=== PATIENT | male | born 1970 | race Two or more races ===

== ENCOUNTER 2024-08-08 08:00 | Day surgery (SDC) | payer OTHER, SELFPAY ==
--- NOTE | 2024-08-07 12:21 | EKG_ITS ---
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
[2024-08-07 12:28] VITALS: BMI 26.5
[2024-08-07 13:59] LABS: Alanine Aminotransferase 22 U/L (10-49); Albumin/Globulin Ratio 1.9 (1.2-2.2); Alkaline Phosphatase 73 U/L (46-116); Anion Gap 10 (7-16); Aspartate Amino Transferase 20 U/L (0-34); BUN/Creatinine Ratio 18 Ratio (12-20); Bilirubin,Total 0.5 mg/dL (0.3-1.2); Blood Urea Nitrogen 14 mg/dL (9-23); Calcium 10.2 mg/dL (8.3-10.6); Calcium (Corrected) 10.2 mg/dL (8.5-10.1); Carbon Dioxide 28.4 mMol/L (20.0-31.0); Chloride 102 mMol/L (98-107); Creatinine (Component) 0.8 mg/dL (0.6-1.3); Estimated Creatinine Clearance 107.7 mL/min (>60); Globulin 2.6 gm/dL (2.3-3.5); Glucose 98 mg/dL (74-106); Osmolality,Calculated 279 (275-295); Potassium 4.2 mMol/L (3.4-5.1); Sodium 140 mMol/L (136-145); Total Protein 7.6 gm/dL (5.7-8.2); eGFR > 60 See Note
[2024-08-08] VITALS (15 sets, daily range): BP systolic 123–155; BP diastolic 82–98; PULSE 63–75; RESP 12–20; TEMP 36.2–36.8; O2SAT 97–100; BMI 27.1
[2024-08-08] MEDS: RINGERS LACTATED 1000 ML 1,000 ML 20 ML IV (08:49)
--- NOTE | 2024-08-08 09:41 | XR_ITS ---
Examination: Bilateral retrograde pyelograms with without KUB Fluoroscopy 9 spot fluoroscopic films of the abdomen Exam date and time: August 08, 2024 at 1149 hours INDICATIONS: Multiple left renal calculi on CT stone study April 12, 2024 TECHNIQUE AND FINDINGS: 9 spot fluoroscopic films of the abdomen obtained Fluoroscopy 1 minute 25 seconds radiation dose 14.59 milligray Contrast opacifies dilated renal collecting systems No ureteral stents are depicted IMPRESSION: Bilateral retrograde studies as above
--- NOTE | 2024-08-08 12:35 | ESOP_ITS ---
Date of Procedure 08/08/24 Pre Op Diagnosis BPH with urinary obstruction and LUTS on tamsulosin 0.4 mg p.o. daily #2 intermittent gross hematuria Post Op Diagnosis Same trabeculated bladder J hooking of the ureters and large median lobe and tiny stones left renal collecting system plus urethral stenosis Procedure Cystoscopic examination bilateral retrograde pyelogram bilateral flexible digital ureteroscopy under fluoroscopic examination urethral dilation Findings Obstructive prostate gland, median lobe enlargement, j hooking of the ureters, tiny stone left collecting system Procedure Description Indication for procedure this is a 54-year-old gentleman who is seen in urology office this patient has BPH with obstructive prostate gland. Patient is on tamsulosin 0.4 mg p.o. daily patient had intermittent gross hematuria he has no history of bleeding diathesis he is not taking any anticoagulants CAT scan was done there was no kidney ureter or bladder stone identified he had tiny stones left renal collecting system. Patient continued to have intermittent gross hematuria he was recommended above procedure procedure and complications were discussed with the patient in great detail informed consent is obtained Patient was brought to the operating room in a satisfactory condition after appropriate premedication was appropriately identified by the surgeon and operating room staff site scope and indications of the procedure were reconfirmed with the patient general anesthesia was given uneventfully parts were prepped and draped in the usual sterile fashion 2% lidocaine was instilled into the urethra 21 Beasley cystoscope was used to do the cystourethroscopy examination of urethra was unremarkable he did have urethral stricture urethral calibration and dilation with male urethral sounds up to 24 [place] was carried out at this time patient received perioperative antibiotics 20 mg of Lasix IV was given for diuresis as well as prevention of pyelocalyceal's infectious complications. Examination of rest of the urethra revealed no stricture prostatic urethra revealed a large prostate gland congested with median lobe enlargement inside of the bladder in all the quadrants quadrant was carried out he had coarse bladder trabeculation and multiple shallow diverticuli no tumor stone was identified identified left ureteral orifice there was a J hooking of the distal ureter I passed the open-ended Pollick catheter through the open- ended Pollick catheter I passed safety wire into the upper pole calyx under fluoroscopic examination next semirigid ureteroscope was used to do the passive dilation of the ureter. No stone tumor was identified. Next semirigid ureteroscope was removed I used flexible digital ureteroscope and screen all the upper pole calyces there were tiny stone in the upper pole which were washed out there was no tumor identified no stone was identified a similar procedure was repeated on the contralateral side which was needed with the left side no tumor stone was identified. Instrument was withdrawn gently #16 Calvillo catheter was inserted patient after having tolerated the procedure well was moved to recovery room in a satisfactory condition to be discharged home to be followed in urology office postoperative instructions are given to patient verbally as well as in writing Calvillo catheter will be removed once urine is clear thank you Anesthesia GETA Pathology / specimen None Estimated Blood Loss 2.0 Condition Stable Disposition PACU Surgeon Bernard Garcia MD Surgical Staff Operation Date: 08/08/24 10:00 Case Staff Anesthesiologist: Teja Christianson
--- NOTE | 2024-08-08 12:37 | SUR.PHASEI ---
1237 Patient arrived to recovery resting comfortably in [facility], drowsy and talking with staff, breathing unlabored, vital signs stable, denies pain, urinary catheter in place with leg secure; draining to gravity, pink urine present in catheter, lung sounds clear upon auscultation, bilateral radial pulses present when palpated, report received from Dada SAUCEDO and Dr. Christianson
--- NOTE | 2024-08-08 12:52 | SUR.PHASEI ---
1252 report given to Leyda Mays RN
--- NOTE | 2024-08-08 12:52 | SUR.PHASEI ---
pt awake, alert, able to follow commands, breathing unlabored, 16F forrest in place and patent draining pink urine, report from Leyda Chou RN
[2024-08-08] MEDS: fentaNYL CIT INJ 50 mCg/ML AMP 2ML IV (13:27)
--- NOTE | 2024-08-08 13:30 | SUR.PHASEII ---
6290 Report received from Leyda Mays RN
--- NOTE | 2024-08-08 13:30 | SUR.PHASEII ---
Report to Leyda Chou RN
--- NOTE | 2024-08-08 13:42 | SUR.PHASEII ---
[address] Garcia patient urine continues to be dark pink, MD would like patient to discharge with catheter and then go to his office tomorrow morning for MD to assess patient, also telephone order read back received from Finasteride 5mg oral daily for patient to start today, will call prescription into pharmacy per MD order
--- NOTE | 2024-08-08 14:10 | SUR.PHASEII ---
1410 Dr. Garcia at bedside talking with patient, MD gave verbal order read-back [place] oral x1, will place order in EMR and administer to patient per MD order
[2024-08-08] MEDS: HYDROcodone/APAP 10/325 TAB PO (14:19)
--- NOTE | 2024-08-08 15:15 | SUR.PHASEII ---
1515 Patient meets discharge criteria from recovery, awake and alert, breathing unlabored, vital signs stable, per patient his pain is tolerable given pain pill prior to discharge, urinary catheter in place; drained 400ml prior to discharge from recovery, patients educated on how to care for catheter and receptive, patient assisted with dressing into his clothing by his and this radio script writer, patient signed limited proficiency statement for his to household coordinator [place]ral[place] to him, discharge instructions given to patient and patients , signed discharge instructions. Patient given all his belongings prior to discharge, transported via wheelchair and left in a private vehicle.
== END 2024-08-08 15:15 | disposition home or self-care (01) ==
PROVIDERS: Anesthesiology; Referring Provider Urology; Visit Provider Urology
PROC: 0TJB8ZZ Inspection of Bladder, Via Natural or Artificial Opening Endoscopic (ICD-10-PCS; CPT 52000; principal; 2024-08-08 09:45)
DX: N32.89 Other specified disorders of bladder (principal); N13.8 Other obstructive and reflux uropathy; N40.1 Benign prostatic hyperplasia with lower urinary tract symptoms; R31.0 Gross hematuria; Z01.810 Encounter for preprocedural cardiovascular examination
CPT/HCPCS: 52281; 36415; 76000; 80053; 93005; A4217; A4649; C1769; C1894; J1100; J1580; J1940; J2371; J2405; J2704; J3010; J3371; J3490; J7120; A9270

== ENCOUNTER → 2024-09-14 | Outpatient (BNVA) | payer OTHER, SELFPAY | END | disposition home or self-care (01) | PROVIDERS: PCP Family Medicine; Referring Provider Family Medicine; Visit Provider Urology | DX: N40.1 Benign prostatic hyperplasia with lower urinary tract symptoms (principal); N13.8 Other obstructive and reflux uropathy; I10 Essential (primary) hypertension; Z87.442 Personal history of urinary calculi; E78.00 Pure hypercholesterolemia, unspecified | CPT/HCPCS: 81003; 99212; G0463 ==

== ENCOUNTER → 2025-05-17 | Outpatient (BNVA) | payer OTHER, SELFPAY | END | disposition home or self-care (01) | PROVIDERS: PCP Family Medicine; Referring Provider Family Medicine; Visit Provider Urology | DX: R97.20 Elevated prostate specific antigen [PSA] (principal); I10 Essential (primary) hypertension | CPT/HCPCS: 81003; 99212; G0463 ==

== ENCOUNTER → 2025-06-14 | Outpatient (BNVA) | payer BC, SELFPAY | END | disposition home or self-care (01) | PROVIDERS: PCP Family Medicine; Referring Provider Family Medicine; Visit Provider Urology | DX: R31.9 Hematuria, unspecified (principal); R97.20 Elevated prostate specific antigen [PSA]; I10 Essential (primary) hypertension | CPT/HCPCS: 99212; G0463 ==

== ENCOUNTER 2025-07-12 09:15 | Emergency (ER) | payer BC, SELFPAY ==
[2025-07-12 09:16] VITALS: BP 94/64; PULSE 63; RESP 17; TEMP 37.2; O2SAT 95
--- NOTE | 2025-07-12 09:30 | XR_ITS ---
Examination: Bilateral hands, 6 views. Technique: AP, Oblique, Lateral each hand total 6 views Date and time of exam: July 12, 2025, 1017 hours INDICATIONS: Patient fell off a ladder today with injury to both hands, bilateral hand pain Findings: Acute comminuted impacted intra-articular fracture distal right radial metaphysis, dorsal displacement of the distal radial fracture fragment on the lateral view Old fracture right fifth metacarpal Old fracture left ulnar styloid tip No acute left hand fracture IMPRESSION: Acute comminuted impacted intra-articular displaced fracture right radial metaphysis
--- NOTE | 2025-07-12 09:30 | EDNOTE_ITS ---
ED Fall Injury RME/HPI General Chief Complaint: Fall Stated Complaint: RIGHT HAND INJURY FELL OF LADDER BACK PAIN Time Seen by Provider: 07/12/25 09:27 Arrival date/time: 07/12/25 09:15 RME / HPI RME / HPI Narrative: 55 year old male with history of hypertension and prediabetes presents to the ED following a fall from a ladder approximately 12 feet in height earlier today. The patient reports he was cutting branches from a tree while standing on the second highest step of the ladder when a branch struck the ladder, causing him to lose his balance and fall, landing on his right side. Upon impact, he also scraped the right side of his face. The patient denies any loss of consciousness. In the ED, he reports pain in the right wrist and left thumb, but denies any pain in the hips, legs, chest, abdomen, back, or neck. Patient repo rts he was ambulatory after the fall with no prolonged down time. Related Data Home Medications ?Medication ?Instructions ?Recorded ?Confirmed atorvastatin 40 mg tablet 40 mg PO QDAY 01/12/2406/14 lisinopril 20 mg tablet 20 mg PO QDAY 01/12/2406/14 tamsulosin 0.4 mg capsule 0.4 mg PO QDAY 04/12/2405/26 Previous Rx's ?Medication ?Instructions ?Recorded acetaminophen 500 mg tablet 1,000 mg (2 x 500 mg) PO Q 6H PRN 07/12/25 (Tylenol Extra Strength) pain #30 tabs ketorolac 10 mg tablet 10 mg PO Q8H PRN pain 5 days #20 07/12/25 tabs Allergies Allergy/AdvReac Type Severity Reaction Status Date / Time Penicillins Allergy Unknown Verified 07/12/25 09:18 povidone Allergy Unknown Verified 07/12/25 09:18 Quinolones Allergy Unknown Verified 07/12/25 09:18 ciprofloxacin (From Cipro) Allergy Verified 07/12/25 09:18 Review of Systems Review of Systems Systems Reviewed: All systems reviewed, normal except as documented Past Medical History Past Medical History CARDIAC: Positive Cardiac Disorders, Hypercholesterolemia and Hypertension GENITOURINARY: Positive Genitourinary Disorders, Kidney Stones and Benign Prostatic Hyperplasia MUSCULOSKELETAL: Positive Musculoskeletal Disorders and Degenerative Disk Disease OTHER HISTORY: Positive Hospitalization (accident, kidney stones) and Chicken Pox Family History FAMILY HISTORY: Positive Family Surgery Social History SMOKING STATUS: Never smoker ED Exam Narrative Physical exam: Constitutional: Awake, alert, appears in pain, diaphoretic. HEENT: Normocephalic, atraumatic, extraocular movements intact. Neck: Supple, no ttp posterior neck. CV: Regular rate and rhythm, no murmurs/rubs/gallops Lungs: Clear to auscultation BL, no respiratory distress. Abd: Soft, NT, ND, no HSM noted to palpation Extremities: Deformity R wrist c/w fracture. Pain left thumb no deformity. Pain right scapular region w mild swelling. Perfusion and sensation intact. Neuro: AAOx3, CN 2-12 GIBL, no acute neuro deficit noted. Skin: superficial abrasion right temporal region. Course Quality Measures none Orders Category Date Time Status CT Screening NOW Care 07/12/25 09:31 Completed Insert IV NOW Care 07/12/25 09:32 Completed Obtain Written Consent For: .NOW Care 07/12/25 10:42 Completed Splint / Immobilizer STAT Care 07/12/25 10:[address] cervical spine wo con Stat Exams 07/12/25 09:[address] chest abdomen pelvis w Stat Exams 07/12/25 09:[address] head/brain wo con Stat Exams 07/12/25 09:30 Completed XR hand BI 2V Stat Exams 07/12/25 09:30 Completed XR wrist RT 2V Stat Exams 07/12/25 09:30 Completed XR wrist RT 2V Stat Exams 07/12/25 12:04 Completed CBC Stat Lab 07/12/25 09:37 Completed CMP [Comprehensive Metabolic Panel] Stat Lab 07/12/25 09:37 Completed PT [Prothrombin Time with INR] Stat Lab 07/12/25 09:37 Completed Type and Screen Stat Lab 07/12/25 09:37 Completed HYDROcodone*/APAP 5/325 [[place] 5/325] Med 07/12/25 12:47 Discontinued 1 tab PO Q6HR PRN Ketamine Inj Med 07/12/25 10:41 Discontinued 45 mg IVP X1 ONE Morphine* Inj Med 07/12/25 09:34 Discontinued 4 mg IVP NOW ONE Ondansetron Inj [Zofran Inj] Med 07/12/25 09:35 Discontinued 4 mg IVP X1 ONE Propofol Inj [Diprivan Inj] Med 07/12/25 10:41 Discontinued 45 mg IV X1 ONE Ringers Lactated 1000 ml [Lactated Ringers] 1,000 ml Med 07/12/25 09:41 Discontinued IV 999 mls/hr fentaNYL INJ [Sublimaze Inj] Med 07/12/25 10:41 Discontinued 50 mcg IVP X1 ONE Vital Signs Vital signs: Vital Signs Temperature 98.9 F 07/12/25 09:16 Pulse Rate 63 07/12/25 09:16 Respiratory Rate 17 07/12/25 09:16 Blood Pressure 94/64 07/12/25 09:16 Pulse Oximetry (%) 95 07/12/25 09:16 Oxygen Delivery Method Room Air 07/12/25 09:16 Pulse ox is 95% on room air which is adequate. PROCEDURES: Orthopedic Fracture Reduction Fracture #1: Time Out Performed: Yes (time out @ 11:52h. ) Side: right Fracture Reduction Location: radius Analgesia: procedural sedation Technique: traction/counter-traction Post Reduction X-rays Demonstrate: anatomical reduction Post-reduction neuro exam: intact Post-reduction vascular exam: intact Splint Applied: Yes Patient Tolerated Procedure: well Procedural Sedation Indication: fracture/dislocation reduction ASA: 1 Preparation: court recording monitor applied, pulse oximeter, capnometry used, supplemental O2 applied, suction/airway equipment at bedside and IV secured Fentanyl: IV Fentanyl dose (mcg): 50 Ketamine: IV Ketamine dose (mg): 45 IV Propofol dose (mg): 45 Patient Tolerated Procedure: well Complications: hypoxia (patients oxygen dropped to 86% and momentarily bagged and quickly improved to high 90s. ) Interventions: oxygen applied and assist by BVM Splint Fabrication: Clinician Made Type: Reverse Sugar Tong Reason for Splint: Optimal Positioning Circulation Distal to Splint: Yes Movement Distal to Splint: Yes Senation Distal to Splint: Yes Tolerance: Tolerates Well Fall MDM Narrative MDM Narrative:: Elsa Fish am scribing for and in the presence of Dr. Sadler. Patient data External records reviewed:: [facility] previous records Clinical information provided by:: patient Social determinants that could affect healthcare access:: none Patient has the following chronic illnesses:: HTN, prediabetic How is presenting disease/condition affected by chronic disease/condition?: uneffected by Evaluation data The following diagnostics were reviewed and interpreted by me:: lab results and radiology exam(s) Lab and/or radiology exams considered but not ordered:: None Interpretation Summary: Cervical spine CT report shows no acute cervical fracture. Chest/abdomen/pelvis CT w con report shows no hemopericardium, pneumothorax, pulmonary contusion or hemothorax. No abdominal parenchymal laceration. No free blood in the abdomen or pelvis Bilateral hand XR report shows acute comminuted impacted intra-articular displaced fracture right radial metaphysis Head CT report shows no acute hemorrhage mass effect or midline shift XR right wrist report shows Acute impacted intra-articular displaced fracture distal radial metaphysis Repeat XR right wrist post procedure shows anatomically positioning of the fracture. Medications / Prescriptions Medications or Prescriptions considered but not ordered:: None Medication administrations:: Medication Administration History Discontinued Medications Hydrocodone Bitart/Acetaminophen (Hydrocodone/Apap 5/325 Tablet) 1 tab PO Q6HR PRN PRN Reason: PAIN Stop: 07/17/25 12:46 Last Admin: 07/12/25 13:51 Dose: 1 tab Documented By: LORI Fentanyl Citrate (Fentanyl Cit Inj 50 Mcg/Ml Amp 2ml) 50 mcg IVP X1 ONE Stop: 07/12/25 10:42 Last Admin: 07/12/25 11:51 Dose: 50 mcg Documented By: LORI Lactated Ringer's (Lactated Ringers) 1,000 mls @ 999 mls/hr IV .Q1H1M ONE Stop: 07/12/25 10:41 Last Infusion: 07/12/25 13:49 Dose: Infused Documented By: Admin: 07/12/25 10:03 Dose: 999 mls/hr Documented By: LORI Ketamine HCl (Ketamine 50 Mg/Ml Vial 10 Ml) 45 mg IVP X1 ONE Stop: 07/12/25 10:42 Last Admin: 07/12/25 11:52 Dose: 45 mg Documented By: LORI Morphine Sulfate (Morphine Sulf Inj 4 Mg/Ml Vial) 4 mg IVP NOW ONE Stop: 07/12/25 09:35 Last Admin: 07/12/25 10:02 Dose: 4 mg Documented By: LORI Ondansetron HCl (Ondansetron Inj 2 Mg/Ml Inj 2 Ml) 4 mg IVP X1 ONE; Protocol Stop: 07/12/25 09:36 Last Admin: 07/12/25 10:02 Dose: 4 mg Documented By: LORI Propofol (Propofol Inj 10 Mg/Ml Vial 20 Ml) 45 mg IV X1 ONE Stop: 07/12/25 10:42 Last Admin: 07/12/25 11:59 Dose: 45 mg Documented By: LORI Comments: Pushed by See above Consultations Consultation(s) initiated? (list below): No Diagnosis Fall Differential Diagnosis: fracture of wrist and compression fracture Most likely diagnosis given after review of the tests above:: Fracture right wrist Admission Indicated Admission indicated?: not indicated Admission Request Was there a request for admission?: No Disposition Plan Disposition Plan: Discharge Discharge Attestation Discharge Attestation: The patient and all family members were given an opportunity to ask questions and understood the discharge instructions. Discharge instructions specifically effects, indications for sooner follow up or return to the emergency department, and the expected course of current diagnosis. Patient condition: Stable Discharge Plan Plan Patient Disposition: HOME (Self Care) Patient condition on transfer: Stable Prescriptions/Referrals Prescriptions/Med Rec: New ketorolac 10 mg tablet 10 mg PO Q8H PRN (Reason: pain) 5 Days Qty: 20 0RF Rx Instructions: maximum total duration of 5 days from all oral, intranasal, or parenteral formulations acetaminophen [Tylenol Extra Strength] 500 mg tablet 1,000 mg PO Q6H PRN (Reason: pain) Qty: 30 0RF No Action atorvastatin 40 mg tablet 40 mg PO QDAY lisinopril 20 mg tablet 20 mg PO QDAY tamsulosin 0.4 mg capsule 0.4 mg PO QDAY Referrals: Geronimo Rodríguez MD [Primary Care Provider, Family Practice] - In 1 week Problem List Clinical Impression: Fracture of wrist Patient/Caregiver Discharge Instructions Education Materials: Treating Wrist Fractures, Procedural Sedation, ED Fracture, Wrist, General Additional Instructions: Algunos principios generales de margaret que pueden ayudarte son los principios de ADELANTE: Agua: (beber suficiente agua fresca para mantenerse hidratado, priorizando el agua en lugar de refrescos, caf?, t?, jugos, etc.). [place] (descansar adecuadamente por la noche, acostarse unas horas antes de la medianoche y evitar las pantallas, la televisi?n y la m?brian jayda marcos antes de acostarse, as? gosia las comidas pesadas marcos antes de acostarse). Ejercicio: (ejercicio/caminatas diarias seg?n la tolerancia). Fide solar: (exponer la piel al que porsche 15-20 minutos aproximadamente, temprano por la ma?richard y al atardecer, para obtener los beneficios de la vitamina D). Aire (ejercicios de respiraci?n profunda temprano por la ma?richard al aire alex). Nutricion: (consumir ozzie dieta a base de plantas, evitar las jailene en general y los alimentos altamente procesados). Templanza (evitar el alcohol, las drogas il?citas, las bebidas con cafe?na, fumar, etc.). [place] (dedicar tiempo diariamente al estudio b?blico y la oraci?n: la contemplaci?n tiene beneficios para la margaret). Recursos adicionales que pueden ser ?tiles: [email or web address], consulte la secci?n de recursos y seminarios. Print Language: Israeli Stand Alone Forms: [employer] Award Info., Patient Portal Info Letter
--- NOTE | 2025-07-12 09:30 | XR_ITS ---
Examination: CT cervical spine without contrast 2-D sagittal reconstructions 2-D coronal reconstructions 3-D reconstructions. Exam date and time: July 12, 2025, 1010 hours INDICATIONS: Patient fell 15 feet off a ladder today with injury to the neck, neck pain CTDI:vol (mGy) 60.2 DLP: (mGycm) 334 Technique: Multiple 2 mm axial sections of the cervical spine have been obtained. The coronal and sagittal reconstructions have been obtained. 3-D reconstructions have been obtained. Low dose protocols were performed. One or more of the following dose reduction techniques were used; automated exposure control, adjustment of the mA and/or KV according to patient size, use of iterative reconstruction technique. Findings: Axial sections demonstrate intact base of the skull. C1 exhibit satisfactory relationship to the odontoid. No acute cervical vertebral body fracture seen. Alignment posterior spinous processes satisfactory. Impression: No acute cervical fracture.
--- NOTE | 2025-07-12 09:30 | XR_ITS ---
EXAMINATION: Right wrist 2 views TECHNIQUE: AP lateral right wrist 2 views Date and time: July 12, 2025, 0955 hours INDICATIONS: Patient fell off a ladder today with injury to the wrist, wrist pain. FINDINGS: Acute intra-articular comminuted impacted fracture distal radial metaphysis On the lateral view there is dorsal displacement of the distal radial fracture fragment 10 mm There is angulation of the distal articulating surface of the radius dorsally Ulnar styloid tip fracture Carpal bones intact IMPRESSION: Acute impacted intra-articular displaced fracture distal radial metaphysis
--- NOTE | 2025-07-12 09:30 | XR_ITS ---
Examination: CT brain head without contrast. 2-D sagittal coronal reconstructions Date and time of exam: July 12, 2025, 1010 hours INDICATIONS: Patient fell off a ladder 15 feet today with injury to the head, head pain CTDI: vol (mGy): 52.2 DLP: (mGycm): 1061 Technique: Multiple CT axial sections of the brain have been obtained, 5 mm slice thickness. Contrast has not been administered. 2-D sagittal, coronal reconstructions have been obtained Low dose protocols were performed. One or more of the following dose reduction techniques were used; automated exposure control, adjustment of the mA and/or KV according to patient size, use of iterative reconstruction technique. Findings: No significant ventricular enlargement. Intra-axial or extra-axial hemorrhage density is not seen. No mass effect or midline shift Basal cisterns are not remarkable. Fourth ventricle is midline. Cranial vault intact. Impression: Negative for acute hemorrhage, mass effect or midline shift
--- NOTE | 2025-07-12 09:30 | XR_ITS ---
Examination: CT chest with intravenous contrast CT abdomen with intravenous contrast CT pelvis with intravenous contrast 2-D coronal and sagittal reconstructions Time of exam: June, 1019 hours INDICATIONS: Patient fell 15 feet off a ladder with injury to the chest and abdomen, chest pain abdomen pain CTDI: vol (mGy) : 9.6 DLP: (mGycm): 712 Technique: Multiple axial images of the chest, abdomen and pelvis with intravenous contrast, 3.0 mm slice thickness. Images obtained post intravenous injection Isovue 370 60 cc. 2-D sagittal and coronal reconstructions. Low dose protocols were performed. One or more of the following dose reduction techniques were used; automated exposure control, adjustment of the mA and/or KV according to patient size, use of iterative reconstruction technique. Findings: Thoracic aorta pulmonary arteries intact No hemopericardium No pneumothorax pulmonary contusion or hemothorax The manubrium and body of the sternum intact No thoracic lumbar or sacral fracture noted Ribs appear intact No liver splenic or renal laceration, no perinephric hematoma 3 mm 2 mm 4 mm left renal calculi, no hydronephrosis or ureteral calculi Aorta normal size No free blood in the abdomen Normal appendix Negative for pneumoperitoneum Normal seminal vesicles No significant prostatomegaly Urinary bladder wall thickening up to 6 mm urinary bladder intact Bones of the pelvis hips appear intact IMPRESSION: Thoracic aorta pulmonary arteries intact No hemopericardium, pneumothorax, pulmonary contusion or hemothorax No abdominal parenchymal laceration Abdominal aorta intact Nonobstructing left renal calculi No free blood in the abdomen or pelvis Osseous structures intact
[2025-07-12] MEDS: ONDANSETRON INJ 2 MG/ML INJ 2 ML 4 MG IVP (10:02)
[2025-07-12] MEDS: MORPHINE SULF INJ 4 MG/ML VIAL IVP (10:02)
[2025-07-12] MEDS: RINGERS LACTATED 1000 ML 1,000 ML 999 ML IV (10:03)
[2025-07-12 10:09] VITALS: BMI 29.9
[2025-07-12 10:11] LABS: Basophils # (Auto) 0.0 Thou/mm3 (0.0-0.2); Basophils % (Auto) 0 % (0-2.5); Eosinophils # (Auto) 0.2 Thou/mm3 (0.0-0.5); Eosinophils % (Auto) 2 % (0-10); Hematocrit 45.7 % (41.0-53.0); Hemoglobin 15.3 g/dL (13.5-16.0); Immature Granulocytes Auto 0.05 Thou/mm3 (0.00-0.00); Lymphocytes # (Auto) 4.7 Thou/mm3 (1.0-4.8); Lymphocytes % (Auto) 48 % (10-50); Mean Corpuscular HGB Conc 33.5 g/dl (31.0-37.0); Mean Corpuscular Hemoglobin 29.6 pg (25.0-35.0); Mean Corpuscular Volume 88 fL (80-100); Monocytes # (Auto) 0.6 Thou/mm3 (0.0-0.8); Monocytes % (Auto) 7 % (0-12); Neutrophils # (Auto) 4.2 Thou/mm3 (1.8-7.7); Neutrophils % (Auto) 43 % (37-80); Nucleated Red Blood Cell # 0.00 Thou/mm3 (0.00-0.00); Nucleated Red Blood Cell % 0 /100 WBC (0); Platelet Count 325 Thou/mm3 (140-440); RDW Standard Deviation 41.6 fL (35.1-43.9); Red Blood Count 5.17 Miln/mm3 (4.50-5.90); White Blood Count 9.8 Thou/mm3 (3.8-10.6)
[2025-07-12 10:17] LABS: INR 1.0 (0.9-1.3); Prothrombin Time 10.8 Seconds (9.0-12.2)
[2025-07-12 10:22] LABS: Alanine Aminotransferase 25 U/L (10-49); Albumin, Serum 4.8 gm/dL (3.5-5.0); Albumin/Globulin Ratio 1.9 (1.2-2.2); Alkaline Phosphatase 61 U/L (46-116); Anion Gap 13 (7-16); Aspartate Amino Transferase 26 U/L (0-34); BUN/Creatinine Ratio 14 Ratio (12-20); Bilirubin,Total 0.8 mg/dL (0.3-1.2); Blood Urea Nitrogen 13 mg/dL (9-23); Calcium 9.3 mg/dL (8.3-10.6); Calcium (Corrected) 9.3 mg/dL (8.5-10.1); Carbon Dioxide 24.5 mMol/L (20.0-31.0); Chloride 104 mMol/L (98-107); Creatinine (Component) 0.9 mg/dL (0.6-1.3); Estimated Creatinine Clearance 96.3 mL/min (>60); Globulin 2.5 gm/dL (2.3-3.5); Glucose 119 mg/dL (74-106); Osmolality,Calculated 282 (275-295); Potassium 3.4 mMol/L (3.4-5.1); Sodium 141 mMol/L (136-145); Total Protein 7.3 gm/dL (5.7-8.2); eGFR > 60 See Note
[2025-07-12 10:29] VITALS: BP 109/69; PULSE 60; RESP 17; TEMP 37.1; O2SAT 96
[2025-07-12] MEDS: fentaNYL CIT INJ 50 mCg/ML AMP 2ML IVP (11:51)
[2025-07-12] MEDS: KETAMINE 50 MG/ML VIAL 10 ML 45 MG IVP (11:52)
[2025-07-12] MEDS: PROPOFOL INJ 10 MG/ML VIAL 20 ML 45 MG IV (11:59)
[2025-07-12 12:00] VITALS: BP 133/76; PULSE 71; RESP 16; TEMP 36.7; O2SAT 98
--- NOTE | 2025-07-12 12:04 | XR_ITS ---
EXAMINATION: Left wrist 2 views TECHNIQUE: AP lateral left wrist 2 views Date and time: July 12, 2025, 1207 hours, comparison July 12, 2025 0951 hours INDICATIONS: Acute severely comminuted fracture distal radial metaphysis: Plain films this morning 0951 hours, post reduction films FINDINGS: Significant improvement in alignment comminuted fractures distal radial metaphysis, intra-articular Ulnar styloid tip fracture noted IMPRESSION: Significant improvement in alignment comminuted fractures distal radial metaphysis
[2025-07-12] MEDS: HYDROcodone/APAP 5/325 TABLET 1 TAB PO (13:51)
== END 2025-07-12 14:53 | disposition home or self-care (01) ==
PROVIDERS: Emergency Provider Family Medicine; PCP Family Medicine
DX: S52.571A Other intraarticular fracture of lower end of right radius, initial encounter for closed fracture (principal); S19.9XXA Unspecified injury of neck, initial encounter; S09.90XA Unspecified injury of head, initial encounter; S29.9XXA Unspecified injury of thorax, initial encounter; S39.91XA Unspecified injury of abdomen, initial encounter; S69.92XA Unspecified injury of left wrist, hand and finger(s), initial encounter; W11.XXXA Fall on and from ladder, initial encounter
CPT/HCPCS: 25605; 36415; 70450; 71260; 72125; 73100; 73120; 73130; 74177; 80053; 85025; 85610; 86850; 86900; 86901; 96361; 96374; 96375; 99284; A4649; J2270; J2405; J2704; J3010; J7120; Q9967; A9270

== ENCOUNTER → 2025-07-23 | Outpatient (CLI) | payer BC, SELFPAY ==
--- NOTE | 2025-07-23 14:56 | XR_ITS ---
Examination: Wrist, right 3 views Technique: Wrist AP, oblique, lateral 3 views Date and time of exam: July 23, 2025, 1502 hours INDICATIONS: Patient fell from a tree July 12, 2025 with wrist fracture FINDINGS: Stable alignment comminuted impacted intra-articular fracture distal radial metaphysis compared with July 12, 2025 Ulnar styloid tip fracture Carpal bones intact IMPRESSION: Stable alignment early healing comminuted impacted intra-articular fracture distal radial metaphysis compared with July 12, 2025
--- NOTE | 2025-07-23 14:56 | XR_ITS ---
Examination: Hand, right 3 views Technique: Hand AP, oblique, lateral 3 views Date and time of exam: July 23, 2025, 1502 hours, comparison July 12, 2025 INDICATIONS: Patient fell from a tree July 12, 2025, wrist fracture FINDINGS: Stable alignment comminuted intra-articular impacted fracture distal radial metaphysis compared with July 12, 2025 Ulnar styloid tip fracture Old fracture deformity fifth metacarpal IMPRESSION: Stable alignment comminuted intra-articular impacted fracture distal radial metaphysis, early healing
== END | disposition home or self-care (01) ==
PROVIDERS: PCP Nurse Practitioner Gerontology; Referring Provider Nurse Practitioner Gerontology; Visit Provider Nurse Practitioner Gerontology
DX: S52.91XA Unspecified fracture of right forearm, initial encounter for closed fracture (principal); W14.XXXA Fall from tree, initial encounter
CPT/HCPCS: 73110; 73130